=== PATIENT | male | born 1965 | race African-American/Black ===

== ENCOUNTER 2018-02-28 07:44 | Inpatient (IN) | payer MEDICAID ==
[2018-02-28] VITALS (24 sets, daily range): BP systolic 122–168; BP diastolic 68–105
[~2018-02-28] VITALS: Ht 177.8 cm; Wt 105.5 kg
[2018-02-28] MEDS ORDERED: SODIUM CHLORIDE 0.9% 1,000 ML IV ONE (07:52)
[2018-02-28] MEDS ORDERED: LORAZEPAM 2MG/ML CPJ IV STA (07:52)
[2018-02-28] MEDS ORDERED: LORAZEPAM 2MG/ML CPJ ONE (07:58)
[2018-02-28] MEDS ORDERED: LEVETIRACETAM 1000MG/100ML 100 ML IV ONE (08:00)
[2018-02-28 08:32] LABS: BG DEOXYHEMOGLOBIN 0.8 % (0.0-5.0); BG FRACTION INSPIRED OXYGEN 99.8; BG METHEMOGLOBIN 0.6 % (0.0-1.5); BG OXYGEN SATURATION 99.2 % (92.0-98.5); BG OXYHEMOGLOBIN 98.6 % (94.0-97.0); BG PCO2 55.3 mmHg (35.0-45.0); BG PH < 6.680 (7.350-7.450); BG PO2 328.8 mmHg (75.0-100.0); BG SAMPLE SITE RIGHT RADIAL; BG TOTAL HEMOGLOBIN 15.9 g/dL (12.0-18.0); BG VENT MODE MASK - NRB
[2018-02-28 08:41] LABS: HEMATOCRIT. 50.6 % (42.0-52.0); HEMOGLOBIN. 14.9 g/dL (14.0-18.0); MEAN CORPUSCULAR VOLUME 91.7 fL (80.0-94.0); MEAN PLATELET VOLUME 9.6 fl (7.4-10.4); PLATELET 307 x1000/uL (130-400); RED BLOOD CELL COUNT 5.51 mill/uL (4.7-6.1); RED CELL DISTRIBUTION WIDTH 14.6 % (11.6-14.6)
[2018-02-28 08:42] LABS: CHLORIDE 103 mEq/L (98-107); INR 1.1; PROTHROMBIN TIME 11.1 sec (9.1-11.1)
[2018-02-28 08:47] LABS: ETHANOL BLOOD < 10 mg/dL
[2018-02-28] MEDS ORDERED: SODIUM BICARBONATE 8.4% 1 MEQ/ML 50ML SYR IV ONE (09:00)
[2018-02-28] MEDS ORDERED: CEFEPIME 1,000 MG in DEXTROSE 5% WATER 50 ML IV SCH (09:01)
[2018-02-28] MEDS ORDERED: VANCOMYCIN 1 G PREMIX 200 ML IV SCH (09:15)
[2018-02-28] MEDS ORDERED: SODIUM CHLORIDE 0.9% 1000ML BAG (SEPSIS BOLUS) IV ONE (09:15)
[2018-02-28 09:21] LABS: PLATELET ESTIMATE NORMAL
[2018-02-28 09:29] LABS: CLARITY URINE CLEAR (CLEAR); COLOR URINE YELLOW (YELLOW); KETONES URINE NEGATIVE (NEGATIVE); LEUKOCYTE ESTERASE URINE NEGATIVE (NEGATIVE); NITRITE URINE NEGATIVE (NEGATIVE); OCCULT BLOOD URINE 3+ (NEGATIVE); PROTEIN URINE 1+ (NEGATIVE); SPECIFIC GRAVITY URINE 1.015 (1.005-1.030); UROBILINOGEN URINE 0.2 E.U./dL (0.2-1.0)
[2018-02-28 09:38] LABS: *AMPHETAMINES SCREEN URINE NEGATIVE (NEGATIVE); *BENZODIAZEPINES SCREEN URINE NEGATIVE (NEGATIVE); *COCAINE SCREEN URINE NEGATIVE (NEGATIVE)
[2018-02-28 09:39] LABS: *BARBITURATES SCREEN URINE NEGATIVE (NEGATIVE); CANNABINOID URINE SCREEN NEGATIVE (NEGATIVE); METHADONE URINE SCREEN NEGATIVE (NEGATIVE); OPIATES URINE SCREEN NEGATIVE (NEGATIVE); PHENCYCLIDINE URINE SCREEN NEGATIVE (NEGATIVE)
[2018-02-28 10:39] LABS: BG BASE EXCESS -7.7 mmol/L (-2.0-2.0); BG CARBOXYHEMOGLOBIN 0.9 % (0.5-1.5); BG DEOXYHEMOGLOBIN 5.9 % (0.0-5.0); BG FRACTION INSPIRED OXYGEN 32; BG HCO3 ACT 19.4 mmol/L (22.0-26.0); BG METHEMOGLOBIN 0.3 % (0.0-1.5); BG OXYHEMOGLOBIN 92.9 % (94.0-97.0); BG PCO2 45.4 mmHg (35.0-45.0); BG PH 7.248 (7.350-7.450); BG PO2 81.9 mmHg (75.0-100.0); BG SAMPLE SITE RIGHT RADIAL; BG TOTAL HEMOGLOBIN 13.6 g/dL (12.0-18.0); BG VENT MODE NASAL CANNULA
[2018-02-28] MEDS ORDERED: MAGNESIUM/ALUMINUM HYDROXIDE/SIMETHICONE 30ML UDC PO PRN (11:00)
[2018-02-28] MEDS ORDERED: DIPHENHYDRAMINE 50MG/ML VIAL IV PRN (11:00)
[2018-02-28] MEDS ORDERED: ACETAMINOPHEN 650MG/20.3ML UDC GT PRN (11:00)
[2018-02-28] MEDS ORDERED: DOCUSATE SODIUM 100MG CAPSULE PO PRN (11:00)
[2018-02-28] MEDS ORDERED: IPRATROPIUM/ALBUTEROL 0.5-3(2.5)MG/3ML NEB INH PRN (11:00)
[2018-02-28] MEDS ORDERED: GUAIFENESIN 200MG/10ML SUGAR FREE UDC PO PRN (11:00)
[2018-02-28] MEDS ORDERED: ONDANSETRON HCL 4MG/2ML INJ IV PRN (11:00)
[2018-02-28] MEDS ORDERED: NA PHOS,M-B/NA PHOS,DI-BA ENEMA 118ML PR PRN (11:00)
[2018-02-28] MEDS ORDERED: ACETAMINOPHEN 650MG SUPP PR PRN (11:00)
[2018-02-28] MEDS ORDERED: DEXTROSE 50% WATER 50ML SYRINGE IV PRN (11:15)
[2018-02-28] MEDS ORDERED: LACTULOSE 20G/30ML UDC NG ONE (11:15)
[2018-02-28 12:22] LABS: BASOPHILS % 0.1 % (0.0-2.0); EOSINOPHILS % 0.3 % (0.0-5.0); HEMATOCRIT. 43.9 % (42.0-52.0); HEMOGLOBIN. 14.1 g/dL (14.0-18.0); LYMPHOCYTES % 6.4 % (20.0-50.0); MEAN CORPUSCULAR HEMOGLOBIN 26.9 pg (28.0-32.0); MEAN CORPUSCULAR VOLUME 83.7 fL (80.0-94.0); MEAN PLATELET VOLUME 8.9 fl (7.4-10.4); MONOCYTES % 6.1 % (2.0-8.0); NEUTROPHILS % 87.1 % (40.0-76.0); PLATELET 244 x1000/uL (130-400); RED BLOOD CELL COUNT 5.25 mill/uL (4.7-6.1); RED CELL DISTRIBUTION WIDTH 13.6 % (11.6-14.6)
[2018-02-28] MEDS: BLOOD SUGAR DIAGNOSTIC STRIP TEST SCH ×3 (12:48→20:17)
[2018-02-28] MEDS: CLONIDINE 0.1MG TABLET PO PRN ×2 (12:52→20:28)
[2018-02-28] MEDS: LACTULOSE 20G/30ML UDC PO SCH ×3 (12:52→20:27)
[2018-02-28] MEDS: INSULIN LISPRO 100 UNITS/ML SUBCUT SCH ×3 (12:53→20:29)
[2018-02-28] MEDS: ENOXAPARIN 30MG/0.3ML SYR SUBCUT SCH ×2 (12:57→20:27)
[2018-02-28] MEDS ORDERED: IPRATROPIUM/ALBUTEROL 0.5-3(2.5)MG/3ML NEB INH SCH (13:00)
[2018-02-28] MEDS: SODIUM CHLORIDE 0.9% INJ 3ML FLUSH IVF SCH ×2 (14:29→21:11)
[2018-02-28] MEDS: SODIUM BICARBONATE 50 MEQ in DEXTROSE 5% WATER 1,000 ML IV SCH (14:45)
[2018-02-28 19:25] LABS: BG BASE EXCESS -1.7 mmol/L (-2.0-2.0); BG CARBOXYHEMOGLOBIN 0.4 % (0.5-1.5); BG DEOXYHEMOGLOBIN 1.6 % (0.0-5.0); BG FRACTION INSPIRED OXYGEN 32; BG HCO3 ACT 23.5 mmol/L (22.0-26.0); BG METHEMOGLOBIN 0.5 % (0.0-1.5); BG OXYGEN SATURATION 98.4 % (92.0-98.5); BG OXYHEMOGLOBIN 97.5 % (94.0-97.0); BG PCO2 41.5 mmHg (35.0-45.0); BG PH 7.371 (7.350-7.450); BG PO2 138.2 mmHg (75.0-100.0); BG SAMPLE SITE RIGHT RADIAL; BG TOTAL HEMOGLOBIN 13.9 g/dL (12.0-18.0); BG VENT MODE NASAL CANNULA
[2018-02-28] MEDS: ALBUTEROL (0.083%) 2.5MG/3ML NEB HHN SCH (19:55)
[2018-02-28] MEDS: CEFEPIME 1,000 MG in DEXTROSE 5% WATER 50 ML IV SCH (20:27)
[2018-02-28] MEDS: LEVETIRACETAM 500 MG in SODIUM CHLORIDE 0.9% 100 ML IV SCH (20:43)
[2018-02-28] MEDS ORDERED: CEFEPIME HCL 1000MG/VIAL INJ IM SCH (21:00)
[2018-02-28 21:03] LABS: CHLORIDE 109 mEq/L (98-107)
[2018-03-01] VITALS (49 sets, daily range): BP systolic 114–176; BP diastolic 73–114
[2018-03-01] MEDS: LACTULOSE 20G/30ML UDC PO SCH ×7 (01:00→23:41)
[2018-03-01] MEDS: ALBUTEROL (0.083%) 2.5MG/3ML NEB HHN SCH ×4 (01:26→19:54)
[2018-03-01] MEDS: CLONIDINE 0.1MG TABLET PO PRN ×2 (04:22→23:37)
[2018-03-01 05:30] LABS: CHLORIDE 101 mEq/L (98-107)
[2018-03-01 05:38] LABS: LDL CHOLESTEROL 23 mg/dL (5-100)
[2018-03-01 05:39] LABS: HDL CHOLESTEROL 32 mg/dL (40-59)
[2018-03-01] MEDS: BLOOD SUGAR DIAGNOSTIC STRIP TEST SCH ×4 (06:07→20:35)
[2018-03-01] MEDS ORDERED: AMLODIPINE 10MG TABLET PO SCH (06:15)
[2018-03-01] MEDS: AMLODIPINE 10MG TABLET PO SCH (06:18)
[2018-03-01] MEDS: SODIUM CHLORIDE 0.9% INJ 3ML FLUSH IVF SCH ×3 (06:18→21:05)
[2018-03-01] MEDS: INSULIN LISPRO 100 UNITS/ML SUBCUT SCH ×4 (06:19→21:04)
[2018-03-01 08:29] LABS: BG BASE EXCESS -1.3 mmol/L (-2.0-2.0); BG CARBOXYHEMOGLOBIN 1.1 % (0.5-1.5); BG DEOXYHEMOGLOBIN 1.9 % (0.0-5.0); BG FRACTION INSPIRED OXYGEN 28; BG HCO3 ACT 24.3 mmol/L (22.0-26.0); BG METHEMOGLOBIN 0.5 % (0.0-1.5); BG OXYGEN SATURATION 98.1 % (92.0-98.5); BG OXYHEMOGLOBIN 96.5 % (94.0-97.0); BG PCO2 43.9 mmHg (35.0-45.0); BG PH 7.361 (7.350-7.450); BG PO2 103.5 mmHg (75.0-100.0); BG SAMPLE SITE RIGHT RADIAL; BG TOTAL HEMOGLOBIN 13.6 g/dL (12.0-18.0); BG VENT MODE NASAL CANNULA
[2018-03-01 08:31] LABS: BASOPHILS % 0.2 % (0.0-2.0); HEMATOCRIT. 39.2 % (42.0-52.0); HEMOGLOBIN. 12.6 g/dL (14.0-18.0); LYMPHOCYTES % 11.6 % (20.0-50.0); MEAN CORPUSCULAR HEMOGLOBIN 26.9 pg (28.0-32.0); MEAN CORPUSCULAR VOLUME 83.8 fL (80.0-94.0); MEAN PLATELET VOLUME 8.9 fl (7.4-10.4); MONOCYTES % 6.5 % (2.0-8.0); NEUTROPHILS % 81.7 % (40.0-76.0); PLATELET 219 x1000/uL (130-400); RED BLOOD CELL COUNT 4.68 mill/uL (4.7-6.1); RED CELL DISTRIBUTION WIDTH 13.9 % (11.6-14.6)
[2018-03-01 08:45] LABS: CHLORIDE 111 mEq/L (98-107)
[2018-03-01] MEDS: SODIUM BICARBONATE 50 MEQ in DEXTROSE 5% WATER 1,000 ML IV SCH (08:45)
[2018-03-01] MEDS: CEFEPIME 1,000 MG in DEXTROSE 5% WATER 50 ML IV SCH ×2 (08:46→20:35)
[2018-03-01] MEDS: ENOXAPARIN 30MG/0.3ML SYR SUBCUT SCH ×2 (08:47→20:35)
[2018-03-01] MEDS: LEVETIRACETAM 500 MG in SODIUM CHLORIDE 0.9% 100 ML IV SCH ×2 (08:48→20:35)
[2018-03-01] MEDS ORDERED: PHENOL/SODIUM PHENOLATE 1.4% SRPAY 177ML MM SCH (16:00)
[2018-03-01] MEDS: THIAMINE HCL 100MG TABLET PO SCH (18:41)
[2018-03-02] VITALS (27 sets, daily range): BP systolic 107–166; BP diastolic 77–113
[2018-03-02] MEDS: ALBUTEROL (0.083%) 2.5MG/3ML NEB HHN SCH ×4 (00:27→20:42)
[2018-03-02] MEDS: SODIUM BICARBONATE 50 MEQ in DEXTROSE 5% WATER 1,000 ML IV SCH ×2 (01:59→19:00)
[2018-03-02] MEDS: LACTULOSE 20G/30ML UDC PO SCH ×3 (04:37→17:35)
[2018-03-02] MEDS: SODIUM CHLORIDE 0.9% INJ 3ML FLUSH IVF SCH ×3 (05:52→22:27)
[2018-03-02] MEDS: BLOOD SUGAR DIAGNOSTIC STRIP TEST SCH ×4 (05:52→22:42)
[2018-03-02] MEDS: INSULIN LISPRO 100 UNITS/ML SUBCUT SCH ×4 (06:47→22:46)
[2018-03-02] MEDS: LEVETIRACETAM 500 MG in SODIUM CHLORIDE 0.9% 100 ML IV SCH ×2 (08:34→22:27)
[2018-03-02] MEDS: CEFEPIME 1,000 MG in DEXTROSE 5% WATER 50 ML IV SCH ×2 (08:34→22:25)
[2018-03-02] MEDS: ENOXAPARIN 30MG/0.3ML SYR SUBCUT SCH (09:14)
[2018-03-02] MEDS: AMLODIPINE 10MG TABLET PO SCH (09:16)
[2018-03-02] MEDS: THIAMINE HCL 100MG TABLET PO SCH (09:16)
[2018-03-02] MEDS: CLONIDINE 0.1MG TABLET PO PRN (11:40)
[2018-03-02] MEDS: ACETAMINOPHEN 325MG TABLET PO PRN (20:26)
[2018-03-02] MEDS ORDERED: SODIUM BICARBONATE 50 MEQ in DEXTROSE 5% WATER 1,000 ML IV SCH (21:15)
[2018-03-02 21:23] LABS: HEPATITIS B SURFACE ANTIGEN NEGATIVE
[2018-03-02 21:53] LABS: HEPATITIS A AB IGM NEGATIVE (NEGATIVE)
[2018-03-03] VITALS (66 sets, daily range): BP systolic 108–168; BP diastolic 70–126
[2018-03-03] MEDS ORDERED: INSULIN LISPRO 100 UNITS/ML SUBCUT ONE (02:28)
[2018-03-03 05:48] LABS: CHLORIDE 103 mEq/L (98-107)
[2018-03-03] MEDS: SODIUM CHLORIDE 0.9% INJ 3ML FLUSH IVF SCH ×3 (05:59→22:15)
[2018-03-03] MEDS: BLOOD SUGAR DIAGNOSTIC STRIP TEST SCH ×4 (06:30→20:24)
[2018-03-03] MEDS: ALBUTEROL (0.083%) 2.5MG/3ML NEB HHN SCH ×4 (07:50→20:35)
[2018-03-03] MEDS: CEFEPIME 1,000 MG in DEXTROSE 5% WATER 50 ML IV SCH ×2 (08:53→20:24)
[2018-03-03] MEDS: LEVETIRACETAM 500 MG in SODIUM CHLORIDE 0.9% 100 ML IV SCH ×2 (08:53→20:24)
[2018-03-03] MEDS: AMLODIPINE 10MG TABLET PO SCH (08:53)
[2018-03-03] MEDS: LACTULOSE 20G/30ML UDC PO SCH ×3 (08:54→17:00)
[2018-03-03] MEDS: THIAMINE HCL 100MG TABLET PO SCH (09:11)
[2018-03-03] MEDS: INSULIN LISPRO 100 UNITS/ML SUBCUT SCH ×4 (09:13→20:24)
[2018-03-03] MEDS ORDERED: IOHEXOL-350 100 ML BOTTLE ONE (11:29)
[2018-03-03] MEDS ORDERED: NICARDIPINE 100 MG in SODIUM CHLORIDE 0.9% 60 ML IV PRN (11:30)
[2018-03-03] MEDS: DEXT 5%/LACTATED RINGERS 1,000 ML IV SCH (12:53)
[2018-03-03] MEDS ORDERED: POTASSIUM CHLORIDE INJ 40 MEQ in DEXT 5% WATER 250 ML IV NR (13:00)
[2018-03-03] MEDS: NITROPRUSSIDE 50 MG in SODIUM CHLORIDE 0.9% 248 ML IV PRN (13:05)
[2018-03-03] MEDS ORDERED: POTASSIUM CHLORIDE 20MEQ TABLET SR PO NR (14:30)
[2018-03-04] VITALS (93 sets, daily range): BP systolic 98–159; BP diastolic 58–99
[2018-03-04] MEDS: ACETAMINOPHEN 325MG TABLET PO PRN ×2 (04:52→13:12)
[2018-03-04] MEDS: DEXT 5%/LACTATED RINGERS 1,000 ML IV SCH ×2 (04:58→21:09)
[2018-03-04] MEDS: SODIUM CHLORIDE 0.9% INJ 3ML FLUSH IVF SCH ×3 (06:10→21:09)
[2018-03-04] MEDS: BLOOD SUGAR DIAGNOSTIC STRIP TEST SCH ×4 (06:30→21:09)
[2018-03-04] MEDS: CEFEPIME 1,000 MG in DEXTROSE 5% WATER 50 ML IV SCH ×2 (08:16→20:24)
[2018-03-04] MEDS: THIAMINE HCL 100MG TABLET PO SCH (08:16)
[2018-03-04] MEDS: AMLODIPINE 10MG TABLET PO SCH (08:16)
[2018-03-04] MEDS: LACTULOSE 20G/30ML UDC PO SCH ×3 (08:17→18:40)
[2018-03-04] MEDS: INSULIN LISPRO 100 UNITS/ML SUBCUT SCH ×4 (08:18→21:16)
[2018-03-04] MEDS: LEVETIRACETAM 500 MG in SODIUM CHLORIDE 0.9% 100 ML IV SCH ×2 (08:41→21:09)
[2018-03-04 09:32] LABS: BASOPHILS % 0.7 % (0.0-2.0); EOSINOPHILS % 1.9 % (0.0-5.0); HEMATOCRIT. 42.7 % (42.0-52.0); HEMOGLOBIN. 14.3 g/dL (14.0-18.0); LYMPHOCYTES % 18.8 % (20.0-50.0); MEAN CORPUSCULAR HEMOGLOBIN 28.1 pg (28.0-32.0); MEAN CORPUSCULAR VOLUME 84.1 fL (80.0-94.0); MEAN PLATELET VOLUME 9.6 fl (7.4-10.4); MONOCYTES % 5.5 % (2.0-8.0); NEUTROPHILS % 73.1 % (40.0-76.0); PLATELET 258 x1000/uL (130-400); RED BLOOD CELL COUNT 5.08 mill/uL (4.7-6.1); RED CELL DISTRIBUTION WIDTH 13.9 % (11.6-14.6)
[2018-03-04 09:36] LABS: CHLORIDE 104 mEq/L (98-107)
[2018-03-04] MEDS: NITROPRUSSIDE 50 MG in SODIUM CHLORIDE 0.9% 248 ML IV PRN ×2 (10:21→21:16)
[2018-03-04] MEDS ORDERED: SODIUM BICARBONATE 50 MEQ in DEXTROSE 5% WATER 1,000 ML IV SCH (11:07)
[2018-03-04] MEDS: ALBUTEROL (0.083%) 2.5MG/3ML NEB HHN SCH ×2 (12:00→20:00)
[2018-03-04] MEDS: METOPROLOL TARTRATE 25MG TABLET PO SCH (20:24)
[2018-03-05] VITALS (87 sets, daily range): BP systolic 106–196; BP diastolic 37–121
[2018-03-05] MEDS: ALBUTEROL (0.083%) 2.5MG/3ML NEB HHN SCH ×3 (02:50→20:27)
[2018-03-05] MEDS: ACETAMINOPHEN 325MG TABLET PO PRN ×3 (05:55→21:04)
[2018-03-05] MEDS: SODIUM CHLORIDE 0.9% INJ 3ML FLUSH IVF SCH ×3 (05:55→21:05)
[2018-03-05] MEDS: BLOOD SUGAR DIAGNOSTIC STRIP TEST SCH ×4 (06:27→20:37)
[2018-03-05] MEDS: INSULIN LISPRO 100 UNITS/ML SUBCUT SCH ×4 (06:29→20:39)
[2018-03-05] MEDS: CEFEPIME 1,000 MG in DEXTROSE 5% WATER 50 ML IV SCH ×2 (10:00→21:36)
[2018-03-05] MEDS: THIAMINE HCL 100MG TABLET PO SCH (10:15)
[2018-03-05] MEDS: AMLODIPINE 10MG TABLET PO SCH (10:15)
[2018-03-05] MEDS: LEVETIRACETAM 500 MG in SODIUM CHLORIDE 0.9% 100 ML IV SCH ×2 (10:15→21:04)
[2018-03-05] MEDS: LACTULOSE 20G/30ML UDC PO SCH ×3 (10:16→17:04)
[2018-03-05] MEDS: METOPROLOL TARTRATE 25MG TABLET PO SCH (10:16)
[2018-03-05] MEDS: CLONIDINE 0.1MG TABLET PO PRN (12:16)
[2018-03-05] MEDS ORDERED: CLONIDINE 0.1MG TABLET PO NR (13:30)
[2018-03-05] MEDS: HYDRALAZINE HCL 25MG TABLET PO SCH ×2 (13:49→21:36)
[2018-03-05] MEDS: METOPROLOL TARTRATE 50MG TABLET PO SCH (20:36)
[2018-03-06] VITALS (30 sets, daily range): BP systolic 109–141; BP diastolic 68–93
[2018-03-06] MEDS: ALBUTEROL (0.083%) 2.5MG/3ML NEB HHN SCH (02:02)
[2018-03-06] MEDS: SODIUM CHLORIDE 0.9% INJ 3ML FLUSH IVF SCH ×2 (06:13→14:23)
[2018-03-06] MEDS: BLOOD SUGAR DIAGNOSTIC STRIP TEST SCH ×2 (06:13→11:51)
[2018-03-06] MEDS: HYDRALAZINE HCL 25MG TABLET PO SCH ×2 (06:13→14:23)
[2018-03-06] MEDS: INSULIN LISPRO 100 UNITS/ML SUBCUT SCH ×2 (06:23→11:52)
[2018-03-06] MEDS: LACTULOSE 20G/30ML UDC PO SCH ×2 (09:16→14:23)
[2018-03-06] MEDS: AMLODIPINE 10MG TABLET PO SCH (09:17)
[2018-03-06] MEDS: THIAMINE HCL 100MG TABLET PO SCH (09:17)
[2018-03-06] MEDS: METOPROLOL TARTRATE 50MG TABLET PO SCH (09:17)
[2018-03-06] MEDS: CEFEPIME 1,000 MG in DEXTROSE 5% WATER 50 ML IV SCH (09:18)
[2018-03-06] MEDS: LEVETIRACETAM 500 MG in SODIUM CHLORIDE 0.9% 100 ML IV SCH (09:18)
[2018-03-06] MEDS: ACETAMINOPHEN 325MG TABLET PO PRN (09:38)
[2018-03-06] MEDS ORDERED: THIA100T72 PO (12:32)
[2018-03-06] MEDS ORDERED: AMLO10TA80 PO (12:32)
[2018-03-06] MEDS ORDERED: METO-539 PO (12:32)
[2018-03-06] MEDS ORDERED: LACT10SO7 PO (12:32)
== END 2018-03-06 15:45 | disposition home or self-care (01) | DRG 720 ==
LOC: ER 07:44 → MICUSO 09:15 → EDBEDREQSVC 09:34 → EDBEDREQ 09:34 → ENRESERV 09:59 → 5WST 03-02 12:20 → MICUSO 03-02 22:00
PROVIDERS: ADMIT Family Medicine; ATTEND Family Medicine
DX: A41.9 Sepsis, unspecified organism (principal); J69.0 Pneumonitis due to inhalation of food and vomit; G93.41 Metabolic encephalopathy; J96.01 Acute respiratory failure with hypoxia; J96.02 Acute respiratory failure with hypercapnia; E87.4 Mixed disorder of acid-base balance; E87.2 Acidosis; Q28.3 Other malformations of cerebral vessels; R16.1 Splenomegaly, not elsewhere classified; K70.30 Alcoholic cirrhosis of liver without ascites; S06.339A Contusion and laceration of cerebrum, unspecified, with loss of consciousness of unspecified duration, initial encounter; E11.65 Type 2 diabetes mellitus with hyperglycemia; E66.9 Obesity, unspecified; R41.844 Frontal lobe and executive function deficit; G40.909 Epilepsy, unspecified, not intractable, without status epilepticus; W06.XXXA Fall from bed, initial encounter; Y93.89 Activity, other specified; Z68.34 Body mass index [BMI] 34.0-34.9, adult; Y92.89 Other specified places as the place of occurrence of the external cause; Y99.8 Other external cause status; Z72.89 Other problems related to lifestyle
CPT/HCPCS: 36415; 36600; 70486; 70496; 70544; 70551; 70552; 71045; 73030; 76700; 80048; 80061; 80076; 80305; 80307; 80329; 82140; 82375; 82805; 82962; 83036; 83605; 83880; 84443; 84484; 85651; 86705; 86709; 86803; 87340; 92610; 93005; 93306; 94640; 96365; 96366; 96368; 96375; 97162; 97164; 99291; G0482; J0692; J1650; J1815; J1953; J2060; J3370; J3480; J3490; J7030; J7040; J7050; J7060; J7070; J7121; J7611; J7620; Q9967; A4315